=== PATIENT | female | born 1995 | race Caucasian/White ===

== ENCOUNTER → 2017-05-31 09:38 | Outpatient (CLI) | payer OTHER, SELFPAY ==
[2017-05-31 11:09] LABS: Hematocrit 35.5 % (37-47); Hemoglobin 11.3 g/dl (12.0-15.0); Mean Corp Hgb Conc 31.8 g/gl (32-36); Mean Corpuscular Hgb 27.8 pg (27.0-32.0); Mean Corpuscular Volume 87.4 fL (81-99); Mean Platelet Vol. 8.6 fl (6.2-12.0); Platelet Count 418 K/mm3 (150-450); RBC Distribution Width CV 13.1 % (11.6-14.6); RBC Distribution Width SD 42.1 fl (35.1-43.9); Red Blood Count 4.06 M/mm3 (4.2-5.4); Scan Indicated on CBC? Y/N NO; White Blood Count 6.9 K/mm3 (4.4-11.0)
[2017-05-31 11:24] LABS: Free T3 3.2 pg/mL (2.18-3.98); T4 Free Direct 0.98 ng/dL (0.76-1.46); Thyroid Stim Hormone (TSH) 2.04 uIU/mL (0.358-3.74)
[2017-05-31 17:50] LABS: Ferritin 5 ng/mL (8-252)
== END ==
PROVIDERS: Visit Provider Obstetrics & Gynecology
DX: N92.6 Irregular menstruation, unspecified (principal)
CPT/HCPCS: 36415; 82728; 84439; 84443; 84481; 85027

== ENCOUNTER → 2017-09-02 16:51 | Outpatient (CLI) | payer OTHER, SELFPAY ==
[2017-09-02 19:04] LABS: Chlamydia Trachomatis by PCR Negative (Negative); Neisserai gonorrhoeae by PCR Negative (Negative); Probe Check PASS; Sample Adequacy Control PASS; Specimen Processing Control PASS
[2017-09-05 09:44] LABS: HPV Reflexed? NOT INDICATED
== END ==
PROVIDERS: Visit Provider Obstetrics & Gynecology
DX: Z12.4 Encounter for screening for malignant neoplasm of cervix (principal)
CPT/HCPCS: 87491; 87591; 88175; G0145

== ENCOUNTER → 2018-06-23 09:24 | Outpatient (CLI) | payer OTHER, SELFPAY ==
--- NOTE | 2018-06-23 09:28 | RAD_ITS ---
HISTORY: low back pain x 18 months following a fall COMPARISON: None FINDINGS: # of images incl. paperwork: 5 XR Spine Lumbar Min 4 Views: 5 views VERTEBRAE: Normal sagittal alignment. Mild left scoliosis centered at L3. VERTEBRAL ALIGNMENT: No spondylolisthesis. There is preservation of the normal lumbar lordosis. DISCS: Disc spaces are preserved. INCLUDED ABDOMEN: No pathologic calcifications observed. Included bowel gas pattern is non-obstructive. RAD/L/S Spine Min 4 Views IMPRESSION: No evidence of lumbar spinal fracture or spondylolisthesis. Mild left scoliosis centered at L3. at 0316 Reported and signed by: Nate Abraham MD Electronically Signed: Nate Abraham, at 3:15 EST Tel , Service support ,
== END ==
PROVIDERS: Family Provider Pediatrics; PCP Pediatrics; Referring Provider Nurse Practitioner Pediatrics; Visit Provider Nurse Practitioner Pediatrics
DX: M54.5 Low back pain (principal); G89.29 Other chronic pain
CPT/HCPCS: 72110

== ENCOUNTER → 2018-11-17 09:56 | Outpatient (CLI) | payer OTHER, SELFPAY ==
[2018-11-17 14:46] LABS: Chlamydia Trachomatis by PCR Negative (Negative); Neisserai gonorrhoeae by PCR Negative (Negative); Probe Check PASS; Sample Adequacy Control PASS; Specimen Processing Control PASS
[2018-11-21 11:30] LABS: HPV Reflexed? NOT INDICATED
== END ==
PROVIDERS: Visit Provider Obstetrics & Gynecology
DX: Z12.4 Encounter for screening for malignant neoplasm of cervix (principal); Z11.3 Encounter for screening for infections with a predominantly sexual mode of transmission
CPT/HCPCS: 87491; 87591; 87624; 88175; G0145

== ENCOUNTER → 2021-03-22 | Outpatient (CLI) | payer OTHER, SELFPAY ==
[2021-03-25 13:07] LABS: Chlamydia By Nucleic Acid AMP Negative (Negative)
[2021-03-25 13:43] LABS: Gonococcus By Nucleic Acid AMP Negative (Negative)
== END | disposition home or self-care (01) ==
LOC: LABSPEC 11:12
PROVIDERS: Visit Provider Obstetrics & Gynecology
DX: Z11.3 Encounter for screening for infections with a predominantly sexual mode of transmission (principal)
CPT/HCPCS: 87491; 87591

== ENCOUNTER 2024-05-29 02:17 | Inpatient (IN) | payer OTHER, SELFPAY ==
[2024-05-29 02:18] VITALS: BP 122/71; PULSE 64; RESP 18; TEMP 36.3; O2SAT 98; BMI 22.8
--- NOTE | 2024-05-29 02:28 | RAD_ITS ---
PROCEDURE: FEMUR MIN 2 VIEWS REASON FOR EXAM: Status post fall. TECHNIQUE: Frontal and cross-table lateral view(s) of right femur COMPARISON: None. FINDINGS: RIGHT FEMUR: Acute femoral neck fracture, with slight elevation of the distal fracture fragment. There is no dislocation involving the femoral head. Remaining visualized osseous structures appear intact. Trace phleboliths within the right pelvis. Overlying soft tissues appear intact. RAD/Femur Min 2 Views IMPRESSION: Acute right femoral neck fracture, with slight elevation of the distal fracture fragment. No dislocation Reading Location: [facility]
--- NOTE | 2024-05-29 02:28 | EDS_ITS ---
HPI History of Present Illness Chief Complaint: Lower Extremity Injury Informant: patient and friend Narrative Narrative: Here with friend mechanical fall 1 hour prior to arrival. Going up steps to her apartment when there is a wet spot slipped falling onto her right side. Pain from her knee goes up her thigh. No head injuries. No medication taken prior to arrival. No allergies. She is finished her menstrual period recently. Reports pain goes up her leg when she turns her foot inwards. PFSH [facility] Medical History (Updated 05/29/24 @ 05:52 by Deepika José) Anxiety Depression Chest pain Medical History no medical history Home Medications ?Medication ?Instructions ?Recorded ?Last Taken ?Type NK 05/29/24 Unknown History Allergy/AdvReac Type Severity Reaction Status Date / Time No Known Allergies Allergy Verified 05/29/24 02:30 Social History Smoking Status: Never smoker ROS ROS ED Constitutional Constitutional ED: Denies fever(s) Cardiovascular Cardiovascular: Denies chest pain Gastrointestinal Gastrointestinal: Denies abdominal pain Musculoskeletal Musculoskeletal: Reports extremity pain; Denies back pain or neck pain Integumentary Denies wounds Neurologic Neurologic: Denies headache(s) EXAM Physical Exam Const Vital Signs: 05/29/24 02:18 05/29/24 03:40 Temperature 97.4 F L 97.4 F L Temperature Source Oral Pulse Rate 64 67 Respiratory Rate 18 18 Blood Pressure 122/71 H 124/67 H Blood Pressure Mean 88 86 Pulse Ox 98 98 Oxygen Delivery Method Room Air Positive well nourished and well developed Constitutional Narrative: GCS 15. General Appearance ED: well developed and NAD HEENT Reports moist mucous membranes normocephalic and atraumatic Eyes General Eye ED: Yes normal appearance of both eyes Neck full ROM Chest Wall Chest: Negative for tenderness Resp normal respiratory effort and normal air movement Effort and Inspection: symmetric chest movement; Negative for respiratory distress Cardio regular rate, regular rhythm and no murmurs Peripheral Pulses: pulses 2+ throughout GI normal to inspection, nondistended, normoactive bowel sounds and non-tender Palpation: Negative for guarding or rebound tenderness present Extremity Extremity Narrative: Right lower extremity: Pain with movement of thigh distally. Reports pain up the leg. Tender palpation mid to distal thigh no deformity soft compartments. No knee leg or ankle tenderness. General Extremety ED: Negative for edema General Extremity: Negative for edema Neuro oriented x3, CN's II-XII intact bilaterally and no sensory deficits noted Sensorium / Orientation: awake and alert Skin no rashes or lesions noted and no wounds MDM MDM MDM Narrative Medical decision making narrative: Interventions / MDM: Differential diagnosis: Hip fracture, hip contusion, fall Diagnosis considered but do not suspect: N/A My EKG interpretation: Sinus rate of 80, no ST changes Imaging independently reviewed and interpreted by myself: 2 view right femur: Concerns for femoral neck fracture. 1 view pelvis right side femoral neck fracture. 1 view chest x-ray: No acute process. External documents reviewed: N/A Test considered but not ordered:N/A ED course: Ice placed, Motrin ordered. X-ray right femur for further evaluation. Received call from x-ray department, reviewed the AP film concerns for femoral neck fracture. Will add pelvic films, preop chest x-ray. 0314: Discussed with patient concerning findings. She denies history of osteopenia or osteoporosis. She has no past medical history. Will order morphine Zofran for additional symptom control. Preop labs EKG also ordered. EKG sinus rhythm hemoglobin 12.2. White count 13 0430: I spoke with hospitalist Dr. Hinojosa for admission. Discussed will inform orthopedic service. Electrolytes normal. 0545: I spoke with orthopedist Dr. Groves, he reviewed the films he is concerned for displacement. States with her being 29 years old, he states she needs to be fixed at a trauma center. I informed medicine of this. Discussed I will call the transfer center. 0610: I spoke with [facility], who discussed with orthopedist Dr. Ernestina Young, who will review the image studies it is pushed up to the facility. States tentatively will except as floor to floor as patient is already admitted. This is relayed to Dr. Hinojosa. They will be informed on the floor once with bed availability. Re-evaluation: stable Disposition discussed with patient/family/significant other: Patient Case discussed with consulting clinician: Hospitalist, [facility] transfer This note was generated with Project Manager dictation software. It may contain incorrect words, spelling, and punctuation that were not noted in checking the note before signing. Lab Data Attestation: I reviewed the patient's lab results. Labs: Laboratory Results - last 24 hr 05/29/24 03:27 WBC 13.0 H RBC 4.02 L Hgb 12.2 Hct 35.8 L MCV 89.1 MCH 30.3 MCHC 34.1 RDW Std Deviation 40.0 RDW Coeff of Arash 12.2 Plt Count 366 MPV 8.2 Immature Gran % (Auto) 0.800 Neut % (Auto) 79.9 H Lymph % (Auto) 13.4 L [place] % (Auto) 4.5 Eos % (Auto) 0.8 Baso % (Auto) 0.6 Absolute Neuts (auto) 10.4 H Absolute Lymphs (auto) 1.74 Nucleated RBC % 0 PT 14.7 INR 1.1 APTT 28.9 Sodium 137 Potassium 3.6 Chloride 105 Carbon Dioxide 24.0 Anion Gap 8 BUN 17 Creatinine 0.73 Estim Creat Clear Calc 103.24 Est GFR (MDRD) Af Amer 122 Est GFR (MDRD) Non-Af 101 BUN/Creatinine Ratio 23.2 H Glucose 112 H Calcium 9.1 Serum , Qual NEGATIVE PTH Intact 63.2 Blood Type A NEGATIVE Antibody Screen NEGATIVE Radiography Diagnostic Testing: Clinical Impression(s) from Imaging Studies Femur X-Ray 05/29/24 02:28 IMPRESSION: Acute right femoral neck fracture, with slight elevation of the distal fracture fragment. No dislocation Reading Location: [facility] Chest X-Ray 05/29/24 02:49 IMPRESSION: No acute cardiopulmonary process identified. Reading Location: [facility] Pelvis X-Ray 05/29/24 02:49 IMPRESSION: Acute femoral neck fracture on the right, as described. Reading Location: [facility] Discharge Plan Dx/Rx/DC Orders Clinical Impression: Fracture of femoral neck, right, closed, Fall, Leukocytosis Disposition Disposition: Acute Care [facility] Discharge Date/Time: 05/29/24 05:23
[2024-05-29] MEDS: Ibuprofen 600 MG Tablet PO (02:31)
--- NOTE | 2024-05-29 02:49 | RAD_ITS ---
PROCEDURE: PELVIS 1 OR 2 VIEWS REASON FOR EXAM: Prior fall. TECHNIQUE: 1 view(s) of the pelvis. COMPARISON: Correlation with right femur x-ray performed same date FINDINGS: Acute femoral neck fracture on the right, with slight elevation of the distal fracture fragment. Anatomic alignment of the femoral heads, within the bilateral acetabuli. Anatomic alignment of the bilateral SI joints and pubic symphysis. Remaining visualized osseous pelvis is intact. Phleboliths within the pelvis. [id number] amounts of fecal retention. RAD/Pelvis 1 or 2 Views IMPRESSION: Acute femoral neck fracture on the right, as described. Reading Location: [facility]
--- NOTE | 2024-05-29 02:49 | RAD_ITS ---
PROCEDURE: CHEST 1 VIEW REASON FOR EXAM: Status post fall. TECHNIQUE: AP view of the chest. COMPARISON: None FINDINGS: The lungs are well aerated. No focal airspace consolidation, pneumothorax or pleural effusion is seen. Remaining lung markings otherwise appears clear. Heart size and great vessels are within normal limits. The osseous thorax appears intact. Radiodensities overlying the chest, likely representing clothing. RAD/Chest 1 View IMPRESSION: No acute cardiopulmonary process identified. Reading Location: [facility]
--- NOTE | 2024-05-29 02:51 | EKG12_ITS ---
Test Reason : DYSRHYTHMIA Blood Pressure : */* mmHG Vent. Rate : 80 BPM Atrial Rate : 80 BPM P-R Int : 140 ms QRS Dur : 108 ms QT Int : 402 ms P-R-T Axes : 69 81 44 degrees QTcB Int : 463 ms Normal sinus rhythm Normal ECG Confirmed by DEBBI THOMAS, AD ([id number]), editorial assistant CLEMENCIA JOHNSON ([id number]) on 06/01/2024 6:08:05 AM Referred By: Confirmed By: AD WERNER MD
[2024-05-29] MEDS: Ondansetron 4 MG/2 ML Vial IV (03:30)
[2024-05-29] MEDS: Morphine 4 MG/ML Syringe IV (03:30)
[2024-05-29 03:40] VITALS: BP 124/67; PULSE 67; RESP 18; TEMP 36.3; O2SAT 98
[2024-05-29 03:48] LABS: Absolute Lymphocyte Count 1.74 X10^3/uL (0.83-4.51); Absolute Neutrophil Count 10.4 X10^3/uL (2.0-7.7); Basophil# 0.08 X10^3/uL; Basophil% 0.6 % (0-1); Eosinophils% 0.8 % (0-5); Hematocrit 35.8 % (37-47); Hemoglobin 12.2 g/dL (12.0-15.0); Lymphocyte # 1.74 X10^3/ul (0.83-4.51); Lymphocyte % 13.4 % (19-41); Mean Corp Hgb Conc 34.1 g/dL (32-36); Mean Corpuscular Hgb 30.3 pg (27.0-32.0); Mean Corpuscular Volume 89.1 fL (81-99); Mean Platelet Vol. 8.2 fl (6.2-12.0); Monocyte# 0.58 X10^3/uL; Monocyte% 4.5 % (0-10); NRBC Flagged by Analyzer 0 % (0-5); Neutrophil # 10.35 X10^3/uL (2.7-7.7); Neutrophil % 79.9 % (47-70); Platelet Count 366 K/mm3 (150-450); RBC Distribution Width CV 12.2 % (11.6-14.6); Red Blood Count 4.02 M/mm3 (4.2-5.4)
[2024-05-29 04:01] LABS: Internal QC Validated? YES +Cl - CLEAR BKGD; Pregnancy, Serum, hCG Quali. NEGATIVE Negative
[2024-05-29 04:02] LABS: International Normalized Ratio 1.1; Prothrombin Time (Protime)PT. 14.7 SECONDS (11.7-14.9)
[2024-05-29 04:03] LABS: Partial Thromboplast Time 28.9 Seconds (24.1-36.2)
[2024-05-29 04:04] LABS: Anion Gap 8 (5-15); BUN 17 mg/dL (7-18); BUN/Creat Ratio 23.2 RATIO (10-20); Calcium,Total 9.1 mg/dL (8.5-10.1); Chloride 105 mmol/L (98-107); Creatinine, Serum 0.73 mg/dL (0.55-1.02); EST Glomerular Filtration Rate 101 mL/min (>60); Est Glom Filt Rate - Afr Amer 122 mL/min (>60); Estimated Creatinine Clearance 103.24 ml/min; Glucose 112 mg/dL (74-106); Potassium 3.6 mmol/L (3.5-5.1); Sodium Level 137 mmol/L (136-145)
--- NOTE | 2024-05-29 04:21 | HP.PCM.HOS_ITS ---
HPI - General General Date of Admission: 05/29/24 Date of Service: 05/29/24 Chief Complaint: Right Hip Pain after Fall. HPI Narrative SANDRA APPIAH, is a 29 F with no significant past medical history other than mild spinal scoliosis that does not limit her in any significant way who presents to [facility] ER complaining of Right hip pain after fall. Ms. Appiah reports her symptoms began approximately 1 hour prior to arrival when she was going upstairs into her apartment when she slipped on a wet spot and subsequently fell sideways very hard onto her Right hip with subsequent severe pain and inability to ambulate. She states the pain primarily moves from her knee up through her thigh with pain partially relieved by rest and was made worse when she turns her foot inward. She denies associated head trauma or LOC with her fall. She recently finished her LMP a few days ago. She also denies recent alcohol, drug use or tobacco abuse and she states she took no medications prior to her arrival. She additionally denies a history of osteopenia, osteoporosis, severe vitamin D deficiency or history of fractures due to falls. There was no report of fever, chills, nausea, vomiting, diarrhea, constipation, headache or wound related to her fall but she does admit to severe anxiety about needing to have surgery with urgent request for anxiolytic, which was granted. In the ER she was noted to have X-ray evidence of Acute Right Femoral Neck Fracture with slight elevation of the distal fracture fragment but with no evidence of dislocation with the ER physician then contacting the hospitalist service to admit this patient with orthopedic microsoft dynamics consultant here recommending transfer to [facility] due to her young age and trauma because it will need to be fixed perfectly. She was then admitted to the general medical floor for ongoing care for a stay that is expected to extend beyond 2 midnights until such time she can be safely transferred to [facility]. [facility] Medical History Anxiety Depression Chest pain Medical History no medical history Home Medications ?Medication ?Instructions ?Recorded ?Last Taken ?Type NK 05/29/24 Unknown History Allergy/AdvReac Type Severity Reaction Status Date / Time No Known Allergies Allergy Verified 05/29/24 02:30 Social History Smoking Status: Never smoker ROS ROS Narrative Review of Systems: Constitutional: Patient denies fever or chills. Eyes: Patient denies changes in vision or discharge from eyes. ENT: Patient denies runny nose, sore throat or ear pain. Resp: Patient denies SOB or cough. CV: Patient denies chest pain, palpitations, heart racing, syncope or near syncope. GI: Patient denies abdominal pain, nausea, vomiting, diarrhea or constipation. : Patient denies dysuria or hematuria. MSK: Patient admits to severe pain in her Right hip that is made worse with movement but is not completely relieved by rest as per HPI. Skin: Patient denies rash, abscess, wound or jaundice. Psych: Patient admits to symptoms of heightened anxiety but she denies SI or HI. Neuro: Patient denies headache or focal neurologic deficits. Allergy: Patient denies lip swelling, tongue swelling or urticaria. Hematology: Patient denies easy bleeding or easy bruisability. Endocrinology: Patient denies polyuria, polydipsia or polyphagia. 14 point ROS otherwise negative except for positives noted above in HPI. Vital Signs Vital Signs Vital Signs: 05/29/24 02:18 05/29/24 03:40 Temperature 97.4 F L 97.4 F L Temperature Source Oral Pulse Rate 64 67 Respiratory Rate 18 18 Blood Pressure 122/71 H 124/67 H Blood Pressure Mean 88 86 Pulse Ox 98 98 Oxygen Delivery Method Room Air Weight Weight: 137 lb 4.8 oz Body Mass Index (BMI) 22.8 Physical Exam Const alert, oriented x3, no apparent distress, average body habitus and healthy appearing General Appearance: cooperative HEENT normocephalic, head/scalp atraumatic, hearing grossly normal bilaterally and moist oral mucous membranes Eyes PERRL, EOMs intact bilaterally and conjunctivae normal Neck no lymphadenopathy and supple Resp normal respiratory effort, no retractions, no use of accessory muscles and clear to auscultation bilaterally Cardio regular rate and regular rhythm GI normal to inspection, nondistended, normoactive bowel sounds, soft to palpation, non-tender and non-distended Extremity Extremity Narrative: RLE shortened and painful with movement with positive 'log-roll' and no signs of vascular compromise with normal pulses and intact sensation throughout. Skin Skin Narrative: Patient has no evidence of rash, abscess, wounds or jaundice. Neuro oriented x3, CN's II-XII intact bilaterally, moves all extremities and no focal motor deficits Sensorium / Orientation: awake, alert, oriented to person, oriented to place and oriented to time Speech: speech normal Psych Mood & Affect: depressed and anxious Results Medical Records Data Attestation: I reviewed the patient's medical records Lab / Micro Data Attestation: I reviewed the patient's lab results. 05/29/24 03:27 05/29/24 03:27 Labs: Laboratory Results - last 24 hr 05/29/24 03:27: WBC 13.0 H, RBC 4.02 L, Hgb 12.2, Hct 35.8 L, MCV 89.1, MCH 30.3, MCHC 34.1, RDW Std Deviation 40.0, RDW Coeff of Arash 12.2, Plt Count 366, MPV 8.2, Immature Gran % (Auto) 0.800, Neut % (Auto) 79.9 H, Lymph % (Auto) 13.4 L, [place] % (Auto) 4.5, Eos % (Auto) 0.8, Baso % (Auto) 0.6, Absolute Neuts (auto) 10.4 H, Absolute Lymphs (auto) 1.74, Nucleated RBC % 0, PT 14.7, INR 1.1, APTT 28.9, Sodium 137, Potassium 3.6, Chloride 105, Carbon Dioxide 24.0, Anion Gap 8, BUN 17, Creatinine 0.73, Estim Creat Clear Calc 103.24, Est GFR (MDRD) Af Amer 122, Est GFR (MDRD) Non-Af 101, BUN/Creatinine Ratio 23.2 H, Glucose 112 H, Calcium 9.1, Serum , Qual NEGATIVE Imaging Radiology Impression Femur X-Ray 05/29/24 02:28 IMPRESSION: Acute right femoral neck fracture, with slight elevation of the distal fracture fragment. No dislocation Reading [facility] Chest X-Ray 05/29/24 02:49 IMPRESSION: No acute cardiopulmonary process identified. Reading [facility] Pelvis X-Ray 05/29/24 02:49 IMPRESSION: Acute femoral neck fracture on the right, as described. Reading Location[facility] Assessment & Plan Assessment/Plan (1) Fracture of femoral neck, right, closed: QUALIFIERS: Encounter type: initial encounter Qualified Code(s): S72.001A - Fracture of unspecified part of neck of right femur, initial encounter for closed fracture (2) Fall: QUALIFIERS: Encounter type: initial encounter Qualified Code(s): W19.XXXA - Unspecified fall, initial encounter (3) Leukocytosis: QUALIFIERS: Leukocytosis type: unspecified Qualified Code(s): D 72.829 - Elevated white blood cell count, unspecified (4) Acute anxiety: (5) Idiopathic scoliosis of lumbosacral spine: QUALIFIERS: Idiopathic scoliosis type: juvenile Qualified Code(s): M41.117 - Juvenile idiopathic scoliosis, lumbosacral region PLAN: Plan 1. X-ray evidence of Acute Right Femoral Neck Fracture with slight elevation of the distal fracture fragment but with no evidence of dislocation after a slip and Fall from standing height in a healthy 29-year-old female with no significant past medical history - Admit to general medical floor. Place RLE in 5 pounds of Vitale's traction. Give acetaminophen prn for [id number]-[id number] (level 1-5/10) pain or fever. Give morphine IV prn for severe (level 6-10/10) pain. Check vitamin D levels. Check intact-PTH with normal serum calcium of 9.1 mg/dL present on admission. Patient should be arranged to have DXA scan as outpatient. Orthopedic microsoft dynamics consultant recommends transfer to [facility] to her young age and trauma with transfer to their medical floor pending at this time to the service of Dr. Ernestina Young with help greatly appreciated. 2. Leukocytosis of 13K present on admission likely due to acute phase reaction to #1 with no signs of infection - Check UA. CXR negative with no obvious signs of infection. 3. Severe Acute Anxiety about impending surgery and rehabilitation complicating #1 & #2 - Patient was reassured and she was given lorazepam 0.5 mg IV once in the ER. She was additionally ordered low-dose Xanax TID prn for breakthrough symptoms. 4. Spinal Scoliosis since childhood - Noted with patient not limited by this in any significant ways. 5. DVT prophylaxis - SCD on LLE preoperatively. We will avoid chemoprophylaxis in cases of traumatic fracture due to increased risk of bleeding complications. Orthopedist to determine postoperative DVT prophylaxis regimen. Total time: Approximately (but not less than) 55 minutes. Charges/Coding Visit Charges Inpatient E&M: 23119 Init Hosp L2
[2024-05-29] MEDS: LORazepam 2 MG/ML Syringe 0.5 MG IV (05:21)
[2024-05-29 05:44] VITALS: BP 121/65; PULSE 72; RESP 18; TEMP 36.7; O2SAT 99
[2024-05-29 05:45] VITALS: BMI 22.3
[2024-05-29 06:00] VITALS: BMI 22.4
[2024-05-29 06:09] LABS: PTHIN 63.2 pg/mL (18.4-80.1)
[2024-05-29 06:55] VITALS: RESP 15
[2024-05-29 07:01] LABS: Magnesium 1.9 mg/dL (1.6-2.6); Phosphorus 2.9 mg/dL (2.5-4.9)
[2024-05-29 07:53] VITALS: BP 112/56; PULSE 70; RESP 14; TEMP 36.8; O2SAT 98
[2024-05-29] MEDS: 0.9% Normal Saline (1000mL) 1,000 ML 100 ML IV (08:01)
[2024-05-29] MEDS: Morphine 2 MG/ML Syringe IV ×2 (08:02→20:30)
--- NOTE | 2024-05-29 09:01 | NURSING ---
[facility] called for bed update at this time, transfer line stated no beds available at this time and that we are still full.
--- NOTE | 2024-05-29 10:35 | PCM.PN.HOSP ---
Reason for Visit Reason for Visit: Diagnoses Elevated white blood cell count, unspecified (05/29/24) Anxiety disorder, unspecified (05/29/24) Juvenile idiopathic scoliosis, lumbosacral region (05/29/24) Fracture of unspecified part of neck of right femur, initial encounter for closed fracture (05/29/24) Unspecified fall, initial encounter (05/29/24) Objective Data Objective Data Vital Signs: Vital Signs Temp Pulse Resp BP Pulse Ox O2 Del Method 98.2 F 70 14 112/56 L 98 Room Air 05/29/24 07:53 05/29/24 07:53 05/29/24 07:53 05/29/24 07:53 05/29/24 07:53 05/29/24 07:53 Oxygen Delivery Method Room Air Weight: 134 lb 4.184 oz Body Mass Index (BMI) 22.4 Lab / Micro Data 05/29/24 03:27 05/29/24 03:27 Labs: Laboratory Results - last 24 hr 05/29/24 03:27: WBC 13.0 H, RBC 4.02 L, Hgb 12.2, Hct 35.8 L, MCV 89.1, MCH 30.3, MCHC 34.1, RDW Std Deviation 40.0, RDW Coeff of Arash 12.2, Plt Count 366, MPV 8.2, Immature Gran % (Auto) 0.800, Neut % (Auto) 79.9 H, Lymph % (Auto) 13.4 L, [place] % (Auto) 4.5, Eos % (Auto) 0.8, Baso % (Auto) 0.6, Absolute Neuts (auto) 10.4 H, Absolute Lymphs (auto) 1.74, Nucleated RBC % 0, PT 14.7, INR 1.1, APTT 28.9, Sodium 137, Potassium 3.6, Chloride 105, Carbon Dioxide 24.0, Anion Gap 8, BUN 17, Creatinine 0.73, Estim Creat Clear Calc 103.24, Est GFR (MDRD) Af Amer 122, Est GFR (MDRD) Non-Af 101, BUN/Creatinine Ratio 23.2 H, Glucose 112 H, Calcium 9.1, Phosphorus 2.9, Magnesium 1.9, TSH 6.670 H, Serum , Qual NEGATIVE, PTH Intact 63.2, Blood Type A NEGATIVE, Antibody Screen NEGATIVE Radiography Diagnostic Testing: Radiology Impression Femur X-Ray 05/29/24 02:28 IMPRESSION: Acute right femoral neck fracture, with slight elevation of the distal fracture fragment. No dislocation Reading Location[facility] Chest X-Ray 05/29/24 02:49 IMPRESSION: No acute cardiopulmonary process identified. Reading Location: [facility] Pelvis X-Ray 05/29/24 02:49 IMPRESSION: Acute femoral neck fracture on the right, as described. Reading Location: [facility] Assessment & Plan Assessment/Plan (1) Fracture of femoral neck, right, closed: QUALIFIERS: Encounter type: initial encounter Qualified Code(s): S72.001A - Fracture of unspecified part of neck of right femur, initial encounter for closed fracture (2) Fall: QUALIFIERS: Encounter type: initial encounter Qualified Code(s): W19.XXXA - Unspecified fall, initial encounter (3) Leukocytosis: QUALIFIERS: Leukocytosis type: unspecified Qualified Code(s): D72.829 - Elevated white blood cell count, unspecified (4) Acute anxiety: (5) Idiopathic scoliosis of lumbosacral spine: QUALIFIERS: Idiopathic scoliosis type: juvenile Qualified Code(s): M41.117 - Juvenile idiopathic scoliosis, lumbosacral region PLAN: Plan 21-year-old female was admitted with mechanical fall 1 hour prior to arrival. She was going up on the steps of her apartment and was admitted to [facility]. She slipped and fall on the right side. Pain from her knee goes up to thigh. 1. X-ray evidence of Acute Right Femoral Neck Fracture with slight elevation of the distal fracture fragment but with no evidence of dislocation after a slip and Fall from standing height in a healthy 29-year-old female with no significant past medical history - Admit to general medical floor. Place RLE in 5 pounds of Vitale's traction. Give acetaminophen prn for nlio-yn-sxgxezrd (level 1-5/10) pain or fever. Give morphine IV prn for severe (level 6-10/10) pain. Check vitamin D levels. Check intact-PTH with normal serum calcium of 9.1 mg/dL present on admission. Patient should be arranged to have DXA scan as outpatient. Orthopedic consumer experience consultant recommends transfer to [facility] to her young age and trauma with transfer to their medical floor pending at this time to the service of Dr. Ernestina Young with help greatly appreciated. 2. Leukocytosis of 13K present on admission likely due to acute phase reaction to #1 with no signs of infection - Check UA. CXR negative with no obvious signs of infection. 3. Severe Acute Anxiety about impending surgery and rehabilitation complicating #1 & #2 - Patient was reassured and she was given lorazepam 0.5 mg IV once in the ER. She was additionally ordered low-dose Xanax TID prn for breakthrough symptoms. 4. Spinal Scoliosis since childhood - Noted with patient not limited by this in any significant ways. 5. DVT prophylaxis - SCD on LLE preoperatively. We will avoid chemoprophylaxis in cases of traumatic fracture due to increased risk of bleeding complications. Orthopedist to determine postoperative DVT prophylaxis regimen.
[2024-05-29] MEDS: FLU VACC 2024-25(6MOS UP)/PF 45 MCG/0.5 ML SYRINGE IM (10:43)
[2024-05-29] MEDS: Cholecalciferol (Vit D3) 125 MCG CAPSULE (5,000 UNITS) PO (10:43)
--- NOTE | 2024-05-29 11:25 | CASEMGMT ---
Insurance review for hospitals In-network with?MMO HMO insurance if transfer is recommended is as follows: [facility], [place], [facility], , [place], [facility], and [facility]. Misti Santiago, Discharge Planning Asst.
--- NOTE | 2024-05-29 11:48 | CASEMGMT ---
Addendum entered by Jumana Salgado 05/29/24 11:55: Spoke with who did not initiate the trf to [facility] and stated the reason pt cannot have surgery here is because [facility] is not the right level of care for this pt and there is not a traumatologist. Updated hospitalist. Original Note: Noted plan for pt is transfer to [facility] but this is not in network with pt insurance. RN CM into pt room, pt states that she would like to go to a facility in network, reviewed with her. Pt states that [facility] is fine for trf. Hospitalist and charge nurse aware and requested to let Dr. Groves know for trf. Paged him at this time.
--- NOTE | 2024-05-29 12:15 | PCA ---
patient demographic sheet faxed to [facility] [phone]
--- NOTE | 2024-05-29 14:27 | PCM.DC.SUM ---
Providers Date of Admission: 05/29/24 Date of Discharge: 05/29/24 Primary Care Physician: No Primary Care Phys Reason For Visit: RIGHT HIP FRACTURE AFTER FALL Diagnosis Discharge Diagnosis (1) Fracture of femoral neck, right, closed: Status: Acute Code(s): S72.001A - Fracture of unspecified part of neck of right femur, initial encounter for closed fracture Qualifiers: Encounter type: initial encounter Qualified Code(s): S72.001A - Fracture of unspecified part of neck of right femur, initial encounter for closed fracture (2) Fall: Status: Acute Code(s): W19.XXXA - Unspecified fall, initial encounter Qualifiers: Encounter type: initial encounter Qualified Code(s): W19.XXXA - Unspecified fall, initial encounter (3) Leukocytosis: Status: Acute Code(s): D72.829 - Elevated white blood cell count, unspecified Qualifiers: Leukocytosis type: unspecified Qualified Code(s): D72.829 - Elevated white blood cell count, unspecified (4) Acute anxiety: Status: Acute Code(s): F41.9 - Anxiety disorder, unspecified (5) Idiopathic scoliosis of lumbosacral spine: Status: Acute Code(s): M41.27 - Other idiopathic scoliosis, lumbosacral region Qualifiers: Idiopathic scoliosis type: juvenile Qualified Code(s): M41.117 - Juvenile idiopathic scoliosis, lumbosacral region Plan 21-year-old female was admitted with mechanical fall 1 hour prior to arrival. She was going up on the steps of her apartment and was admitted to [facility]. She slipped and fall on the right side. Pain from her knee goes up to thigh. 1. Acute right femoral neck fracture with slight elevation of the distal fracture fragment but with no evidence of dislocation after a slip and Fall from standing height send history of traumatic fracture: Patient is admitted MedSurg floor. Right lower extremity on traction of 5 pound. On pain control. Dr. Groves recommended transfer to [facility] but they do not have bed because of trauma, transferred to [facility]. Dr. Groves talk to orthopedic trauma surgeon, Dr. Jeronimo Syed. 2. Leukocytosis of 13K present on admission likely due to acute phase reaction: Patient does not have signs of infection. 3. Severe Acute Anxiety from surgery: Patient had IV Ativan 0.5 Jwayyed 4. Spinal Scoliosis since childhood - Noted with patient not limited by this in any significant ways. 5. DVT prophylaxis -on SCDs Patient transferred to [facility] Medications at Discharge Home Medications NK 05/29/24 Physical Exam Narrative Seen and examined General: Alert, Oriented x3, Cooperative HEENT: Atraumatic, PERRLA, EOMI, Normocephalic Oral: No Gingival or Mucosal Lesions/ Ulcerations Neck: Supple, No JVD, Negative Carotid Bruits Chest wall/Lungs: Air entry diminished in bilateral lung bases. No crepitation/rhonchi Cardiovascular: Regular rate, Regular Rhythm, Normal S1, Normal S2, No M/G/R Abdomen: Bowel Sounds Present, Soft, Non Tender, Non-Distended : No dysuria. No renal angle tenderness. No suprapubic tenderness. Extremities: No edema, Capillary Refill Less than 3 Seconds Skin: No rashes, No breakdown Musculoskeletal: Right hip anterior lateral tenderness. RLE on traction. Neurological: Cranial nerves II-XII grossly intact, DTR 2+/4. No acute focal neurological deficit. Psych/Mental Status: Mild anxiety Weight / BMI Weight Weight: 134 lb 4.184 oz Body Mass Index (BMI) 22.4 ABG / Lab / Microbiology Data 05/29/24 03:27 05/29/24 03:27 Laboratory: Laboratory Results - last 24 hr 05/29/24 03:27: WBC 13.0 H, RBC 4.02 L, Hgb 12.2, Hct 35.8 L, MCV 89.1, MCH 30.3, MCHC 34.1, RDW Std Deviation 40.0, RDW Coeff of Arash 12.2, Plt Count 366, MPV 8.2, Immature Gran % (Auto) 0.800, Neut % (Auto) 79.9 H, Lymph % (Auto) 13.4 L, Griggs % (Auto) 4.5, Eos % (Auto) 0.8, Baso % (Auto) 0.6, Absolute Neuts (auto) 10.4 H, Absolute Lymphs (auto) 1.74, Nucleated RBC % 0, PT 14.7, INR 1.1, APTT 28.9, Sodium 137, Potassium 3.6, Chloride 105, Carbon Dioxide 24.0, Anion Gap 8, BUN 17, Creatinine 0.73, Estim Creat Clear Calc 103.24, Est GFR (MDRD) Af Amer 122, Est GFR (MDRD) Non-Af 101, BUN/Creatinine Ratio 23.2 H, Glucose 112 H, Calcium 9.1, Phosphorus 2.9, Magnesium 1.9, TSH 6.670 H, Serum , Qual NEGATIVE, PTH Intact 63.2, Blood Type A NEGATIVE, Antibody Screen NEGATIVE Radiography Diagnostic Testing: Radiology Impression Femur X-Ray 05/29/24 02:28 IMPRESSION: Acute right femoral neck fracture, with slight elevation of the distal fracture fragment. No dislocation Reading Location: [facility] Chest X-Ray 05/29/24 02:49 IMPRESSION: No acute cardiopulmonary process identified. Reading Location: [facility] Pelvis X-Ray 05/29/24 02:49 IMPRESSION: Acute femoral neck fracture on the right, as described. Reading [facility] D/C Instructions DC O2, CPAP, BIPAP Needs Home O2 Discharge instructions: No Meaningful Use Info Meaningful Use Meaningful Use Diagnoses (Choose all that apply): None applicable Ischemic Stroke Statin Dosing Therapy Reference: STATIN DOSE THERAPY REFERENCE: * Patients > 75 years receive moderate or high dose statin therapy. * Patients 75 years or YOUNGER should receive HIGH intensity statin dose unless contraindicated. You will be required to document reason for non-treatment if statin daily dose does not meet guidelines. HIGH DOSE STATIN THERAPY DAILY Atorvastatin > than or = to 40 mg Rosuvastatin > than or = to 20 mg Amlodipine + Atorvastatin > than or = to 2.5/40 mg Ezetimibe + Simvastatin 10/80 mg Simvastatin 80mg Discharge Plan Admission Admit Date/Time: 05/29/24 04:46 Attending Provider: Brad Moya Primary Care Provider: Care Physician,No Primary Consulting Providers: Jake Hurt Discharge Orders/Prescriptions Prescriptions: No Action NK Referrals / Follow Up: Care Physician,No Primary [Primary Care Provider] - Disposition Discharge Orders: Discharge Patient (Routine); Ordered 05/29/24 Ordered By: Dr. Brad Moya Charges/Coding Visit Charges Inpatient E&M: 53476 Disch Hosp >30min
[2024-05-29 16:14] VITALS: BP 126/75; PULSE 66; RESP 14; TEMP 36.6; O2SAT 99
--- NOTE | 2024-05-29 16:17 | CHAPLAIN ---
Type of Pastoral Visit _x__ Initial Visit ___ Follow-up Visit ___ On-call Visit ___ General Patient Visit ___ Spiritual Assessment ___ Family Conference ___ Bereavement ___ Rapid Response ___ Code Blue ___ Other (describe below) Pastoral Care Referral From _x__ Patient ___ Family ___ Nurse ___ Physician ___ Sort Supervisor ___ Clerk Funeral Detail ___ Other (describe below) Sacrament/Intervention _x__ Active listening ___ Anointing ___ Synagogue ___ Bereavement ___ Communion _x__ Lisbet exploration ___ ___ Life review _x__ Prayer ___ Reconciliation ___ Sacrament of Sick _x__ Supportive presence ___ Wedding ___ Other (describe below) Pastoral Comments patient and spouse are in the room awaiting for patient to be transferred to another hospital; gave time for both to talk about waiting and how they are coping; pt admits frustrations but is realistic about situation; pt states that she has been connected to a lisbet community but that work has kept her from being active; pt states she wants to reconnect to her lisbet and welcomes a prayer; spouse states that he just needs sleep as it has been a very long day and night
[2024-05-29] MEDS: ALPRAZolam 0.25 MG Tablet 0.125 MG PO (18:35)
[2024-05-29] MEDS: 0.9% Saline Lock 10 ML Syringe IV (20:30)
[2024-06-01 13:07] LABS: Vitamin D 1,25-Dihydroxy 49.7 pg/mL (24.8-81.5)
== END 2024-05-29 20:42 | disposition short-term general hospital (02) | DRG 536 ==
LOC: ED 03:07 → MS3 05:09
PROVIDERS: Admitting Provider Internal Medicine; Emergency Provider Emergency Medicine; Visit Provider Internal Medicine
DX: S72.001A Fracture of unspecified part of neck of right femur, initial encounter for closed fracture (principal); D72.828 Other elevated white blood cell count; F32.A Depression, unspecified; F41.9 Anxiety disorder, unspecified; W10.9XXA Fall (on) (from) unspecified stairs and steps, initial encounter; M41.117 Juvenile idiopathic scoliosis, lumbosacral region
CPT/HCPCS: 71045; 72170; 73552; 80048; 82652; 83735; 83970; 84100; 84443; 84703; 85025; 85610; 85730; 86850; 86900; 86901; 90656; 93005; 97802; 99284; A4216; J2405

== ENCOUNTER 2024-08-27 09:30 | Outpatient (RCR) | payer OTHER, SELFPAY ==
--- NOTE | 2024-06-11 11:00 | HP.PTEVAL_ITS ---
Patient's Visit Information Visit Information Visit Information: SANDRA APPIAH is a 29 year old F referred to Physical Therapy by Dr. Jeronimo Syed MD with a diagnosis of s/p R ORIF subcapital femoral neck fracture 05/30/24. Date of Evaluation: 06/11/24 Physical Therapist: Jeronimo Vega, DPT, OCS, CSCS Visit Plan Frequency: 2-3x /Week Duration: 4-6 Weeks Plan: 2-3x/week for 2-3 months til mid August as needed(start 4 weeks) for... HEP QS, GS, supine windshield wipers LAQ, R leg off table for quad stretch 2x/day adn gait TTWB R and one step education. Currently pt is TTWB R according to her and will contact doctor for further clarification Please do hip and knee ROM, quad and scar massage and stretch, hip and knee strength, mat to stand and progress HEP, giat progredssion TTWB now and steps and progress when word received from doctor. work on hip flexion to get down to put on own sock adn shoe ice as needed. Subjective Subjective: Mom present with her. I fell on a wedt spot at apartment and hit floor. 05/29/24. Broke hip R. Carried to apartment and friends took to ER. Took x rays, brioke joint of hip. Trasnferred to [facility]. Surgery 05/30/24 for ORIF. Since then had PT in hospital and was there for 3-4 days. Went home with parents b/c of this. Living in one floor with steps to enter. Has ramp. Spnds day in recliner. pain level is 4-5/10 intermittently and worse with dog on lap. Pressure to R side is painful. Wallking with wh walker at home short distances. bathroom I. Hard to get in bed by her self , painful to lift leg. Dresses self except shoes and socks needs assist. HEP: LAQ, QS, hip abd, HS, No ice Normally lives in apartment with . 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 I Hobbies: cooking and baking. No regular exercises. TTWB 10% for 12 weeks. Pain R hip: Pain Intensity (Out of 10): 1 Pain Intensity Range: 0 and 5 Objective Objective: Pushed back by mom into PT with WC, educate on in and out of chair I and can do it. Sit to stand with UE I, NWB RAleksandra Martin at walkeer I NWB, educated on 10% WB and able.Walks with wh walker 150 feet today NWB mod I, and with VC TTWB well albeit slow but safe. Stand to sit I with UE and great caree. transfer into be dI with pain lifting R LE but able, out of bed I and painful but able. Stand without AD I but hesitates to put weight through R. AROM hesitant R LE but able to LAQ and 0-105 AROM R knee. L knee 0-138. HIP PROm flexion 100 and abd 20 and IR 10 adn er 25 imited by pain. Incision is lateral and dressed properly appearing dry and without redness, heat or excessive swelling. Surrounding tissue feeks patent. and appropriate. ankle aROM WFL Sensation LE B WNL to gross light touch. weakness and hesitancy with R hip contractions but at least 2/5 in all. knee is 3+ ext and flexion R and 4 L. ankles is 4 B without pain. Pt is emotional and crying often especially with steps. One step is up with L and down with R with walker. Min A. Balance/Special Test Scores Lower Extremity Functional Score: 10 Goals Goal 1:: Put on shoes and socks I Goal Time Frame: 4-6 Weeks Goal 2:: Sleep without waking due to pain Goal Time Frame: 4-6 Weeks Goal 3:: i appropriate management of condition for HEP gait and ex. Goal Time Frame: 4-6 Weeks Goal 4:: walk community as allowed by doctor without gait deviaitons Goal Time Frame: 4-6 Weeks Goal 5:: steps reciprocally wihtout railing when allowed by doctor Goal Time Frame: 6-8 Weeks Goal 6:: LEFS score 55 Goal Time Frame: 8-12 Weeks Rehabilitation Potential Physical Therapy Diagnosis: wekaness and stiffness and disuse of R LE after surgery limitiing funciton Rehabilitation Potential: Good Anticipated Interventions Patient/Client Instruction: Educate patient on: Condition and Plan of Care For the Purpose of:: To decrease pain, To improve nutrient delivery to tissue and To improve muscle performance and motor function Therapeutic Exercise to Include: Strength training, Flexibilty training, Gait and locomotor training, Passive ROM and Active ROM For the Purpose of:: To decrease pain, To increase ROM, To improve nutrient delivery to tissue, To improve muscle performance and motor function, To increase tolerance to activity/condition/position and To improve gait and locomotor functions For the Purpose of:: To decrease pain, To increase ROM, To improve nutrient delivery to tissue, To improve muscle performance and motor function and To increase tolerance to activity/condition/position Cryotherapy (ice pack, ice massage): Yes For the Purpose of:: To decrease pain and To decrease swelling/inflammation Text: Thank you for the opportunity to evaluate your patient. For Medicare and Medicare HMO plans, please review the plan of care and approve it. It will need to be FAXED BACK to us at [phone] for Medicare purposes. For Medicare only, by signing this I certify the plan of care. Please let me know if there are questions or concerns regarding this plan of care. Physician Signature: Date:
--- NOTE | 2024-07-10 10:07 | HP.PTREVAL ---
Re-Evaluation Intro: Dr. Jeronimo Syed MD, It has been my pleasure to treat SANDRA APPIAH over the last 13 visits for s/p R ORIF subcapital femoral neck fracture 05/30/24. Please see the progress note below for an update on the physical therapy plan of care! Subjective Subjective: Feel like she is getting better slowly, walking faster with walker. Dresses self now I. In and out of bed I. using walker to geet around and see doctor next weeek. Sleeping OK some nights but loses sleep due to R knee pain and having to move around. Objective Objective/Function: Walking with wh walker TTWB per doctor order and scared to injure it if she puts too much weight through it until doctor release. She is hoping for next week. LEFS improving, pt attitud mentally better than day on with less tears but still at times. AROM R hip 110 fleexion and 25 abduction, 40 er, 10 IR, tightness end rangee of er and flexion. strength R SLR neds to turn plvis toward R to lift, better with VC, can lift without lag. abduction 2+ is unable with leg straight, can do with knee bent to 90 but it is weak and challenging, ext 3+. Overall better function and gait with L step length over the last month, still very weak and fearful of reinjury. Visits for PT are limited to 20 per year so frequency for therapy will decrease until WB status increases and emphasized the importance of compliance with HEP to patient and mom today. Plan Plan Plan: Bump down to weekly until WB status increases and continue to ensure progress adn compliance with HEP peer below and progress challenges each week. Gait training to progress when allowed. Balance/Gait/Functional tests Balance/Special Test Scores Lower Extremity Functional Score: 14 Goals Goals Goal 1:: Put on shoes and socks I Goal Time Frame: 4-6 Weeks Goal Progress: Goal Met Goal 2:: Sleep without waking due to pain Goal Time Frame: 4-6 Weeks Goal Progress: Progressing Goal 3:: i appropriate management of condition for HEP gait and ex. Goal Time Frame: 4-6 Weeks Goal Progress: Progressing Goal 4:: walk community as allowed by doctor without gait deviaitons Goal Time Frame: 4-6 Weeks Goal 5:: steps reciprocally wihtout railing when allowed by doctor Goal Time Frame: 6-8 Weeks Goal 6:: LEFS score 55 Goal Time Frame: 8-12 Weeks Anticipated Interventions Anticipated Interventions Patient/Client Instruction: Educate patient on: Condition and Plan of Care For the Purpose of:: To decrease pain, To improve nutrient delivery to tissue and To improve muscle performance and motor function Therapeutic Exercise to Include: Strength training, Flexibilty training, Gait and locomotor training, Passive ROM and Active ROM For the Purpose of:: To decrease pain, To increase ROM, To improve nutrient delivery to tissue, To improve muscle performance and motor function, To increase tolerance to activity/condition/position and To improve gait and locomotor functions For the Purpose of:: To decrease pain, To increase ROM, To improve nutrient delivery to tissue, To improve muscle performance and motor function and To increase tolerance to activity/condition/position Cryotherapy (ice pack, ice massage): Yes For the Purpose of:: To decrease pain and To decrease swelling/inflammation Re-Evaluation Ending Re-evaluation ending: Please do not hesitate to contact me at [phone] by phone or if you have questions or concerns regarding this new plan of care! Sincerely, Jeronimo Vega, DPT, OCS, CSCS
--- NOTE | 2024-08-27 10:29 | HP.PTDCSUM_ITS ---
Discharge Summary D/C summary: It has been my pleasure to treat SANDRA APPIAH referred by Dr. Jeronimo Syed MD, with the diagnosis of s/p R ORIF subcapital femoral neck fracture 05/30/24 for a total of 21 visit(s). Discharge Date: 08/27/24 Please see the following information for a summary of their discharge status. Subjective Subjective: Will go back to apartemnt in 4 days and hopefully back to work next Saturday. to doctor next Saturday. Pain is not an issue, still feels weak. Sleeping OK. Only hurts if on feet too much. Can take breaks at work. 70% better but still feels like she needs assistance. Basic ADLs are all I. Pain R hip: Pain Intensity (Out of 10): 5 Left LE: Pain Intensity (Out of 10): 0 Overall Improvement % Improvement: 70 Objective Objective/Function: Walks with large R trendelenberg with cane and much better with cane but safe and I either way. Steps are reciprocal requiring one rail and obvious weakness in R but funcitonal with rail. ROM R hip WFL adn without pain today, flexion most limited but still 105 plus. weakness obvious in abd and ext. pt has always lacked confidence in her abilities and needed encouragement but has worked hard and come a long way slowly. 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 F/U with doctor next week. Goals Goal 1:: Put on shoes and socks I Goal Progress: Goal Met Goal 2:: Sleep without waking due to pain Goal Progress: Goal Met Goal 3:: i appropriate management of condition for HEP gait and ex. Goal Progress: Progressing Goal 4:: walk community as allowed by doctor without gait deviaitons Goal Progress: R trendelenberg Goal 5:: steps reciprocally wihtout railing when allowed by doctor Goal Progress: needs rail Goal 6:: LEFS score 55 Goal Progress: Progressing Plan Plan: d/c pt request D/C Information Discharge Comments: Pt request d/c and willk work on HEP. To doctor next week and wishes to go back to work limited duty and will move back into apartment. d/c sentence: If there are questions or concerns regarding this patient's physical therapy, please feel free to call me at [phone]. Thank you for the referral of this patient. Sincerely, Jeronimo Vega, DPT, OCS, CSCS Balance/Gait/Functional tests Balance/Special Test Scores Lower Extremity Functional Score: 43 Improvement % Improvement: 70
== END 2024-08-27 19:00 | disposition home or self-care (01) ==
LOC: PT 09:30
PROVIDERS: Referring Provider Orthopaedic Surgery; Visit Provider Orthopaedic Surgery
DX: S72.001D Fracture of unspecified part of neck of right femur, subsequent encounter for closed fracture with routine healing (principal)
CPT/HCPCS: 97110; 97116; 97162; 97530